=== PATIENT | male | born 1970 | race African-American/Black ===

== ENCOUNTER 2018-03-31 19:45 | Emergency (ER) | payer OTHER, BC ==
[2018-03-31] MEDS ORDERED: IBUPROFEN 800 MG TABLET PO ONE (21:32)
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
--- NOTE | 2018-03-31 22:30 | RADIOLOGY REPORT (SQ) ---
XR LUMBAR SPINE ANTEROPOSTERIOR, LATERAL, AND OBLIQUES HISTORY: Lower back pain. COMPARISON: None. FINDINGS/IMPRESSION: 5 non-rib bearing lumbar-type vertebra are present. Normal alignment without static listhesis. Degenerative disc disease at L5-S1. Vertebral body heights are preserved without evidence of acute compression fracture.
[2018-03-31 22:46] VITALS: BP 145/83
== END 2018-03-31 22:47 | disposition home or self-care (01) ==
LOC: ER 19:45
DX: S19.9XXA Unspecified injury of neck, initial encounter (principal); M54.5 Low back pain; V43.52XA Car driver injured in collision with other type car in traffic accident, initial encounter; Y92.481 Parking lot as the place of occurrence of the external cause; F17.210 Nicotine dependence, cigarettes, uncomplicated
CPT/HCPCS: 99406; 99283; 72110; L0120